=== PATIENT | female | born 1970 | race Caucasian/White ===

== ENCOUNTER 2017-08-31 13:22 | Emergency (ER) | payer OTHER, SELFPAY | END 2017-08-31 14:07 | disposition home or self-care (01) | PROVIDERS: Emergency Provider Nurse Practitioner Family; Visit Provider Nurse Practitioner Family | DX: J01.00 Acute maxillary sinusitis, unspecified (principal); J40 Bronchitis, not specified as acute or chronic; F17.210 Nicotine dependence, cigarettes, uncomplicated | CPT/HCPCS: 99201 ==

== ENCOUNTER → 2018-06-01 13:24 | Outpatient (CLI) | payer OTHER, SELFPAY ==
--- NOTE | 2018-06-01 13:29 | US_ITS ---
US transvaginal HISTORY: Irregular cycles, dysfunctional uterine bleeding ITS.REASON: DUB ORDERING PHYSICIAN: Citlali Anderson PATIENT AGE: 48 years Comparison: None FINDINGS: The uterus is 8.2 x 3.9 x 4.3 cm with a combined endometrial thickness of 6 mm. There are a couple of nabothian cysts 7 and 4 mm. There is some lobularity along the anterior aspect of the uterus possibly related to scar. The left ovary is 3.3 x 2.4 cm and contains a 2 x 1.6 cm cyst. The right ovary is 2.8 x 1.4 cm and has an unremarkable appearance. No cul-de-sac fluid is evident. IMPRESSION: 2 cm left ovarian cyst Minimal lobularity on the anterior aspect the uterus possibly related to scar versus a small fibroid at 6 mm.
== END ==
PROVIDERS: PCP Family Medicine; Visit Provider Family Medicine
DX: N93.8 Other specified abnormal uterine and vaginal bleeding (principal)
CPT/HCPCS: 76830

== ENCOUNTER → 2021-11-19 11:02 | Outpatient (CLI) | payer BC, SELFPAY ==
[2021-11-22 08:17] LABS: H. pylori Breath Test Negative (Negative)
== END ==
PROVIDERS: PCP Family Medicine; Visit Provider Family Medicine
DX: K21.9 Gastro-esophageal reflux disease without esophagitis (principal)
CPT/HCPCS: 83013

== ENCOUNTER → 2021-12-01 08:58 | Outpatient (CLI) | payer BC, SELFPAY ==
[2021-12-01 09:57] LABS: Urine Pregnancy, HCG Qual. Negative (Negative)
== END ==
PROVIDERS: Visit Provider Internal Medicine Gastroenterology
DX: Z01.818 Encounter for other preprocedural examination (principal); Z11.52 Encounter for screening for COVID-19; Z12.11 Encounter for screening for malignant neoplasm of colon
CPT/HCPCS: 81025; C9803; U0003; U0005

== ENCOUNTER 2021-12-03 09:10 | Day surgery (SDC) | payer BC, SELFPAY ==
[2021-11-30 16:01] VITALS: BMI 40.5
[2021-12-03 09:21] VITALS: BP 161/92; PULSE 82; RESP 16; TEMP 36.5; O2SAT 98
--- NOTE | 2021-12-03 09:44 | P.PN_ITS ---
[facility] Anesthesia Checklist - Patient Identification Patient Identification: Arm Band - Structural Data Admitted From: Home Planned Operative Procedure/s: Colonoscopy Consent for Planned Operative Procedure(s) Verified: Yes - NPO Status Verified Time NPO: 07:30 (Prep) - Airway Assessment C-Spine Mobility Assessed: Yes TMJ Mobility Assessed: Yes Dentition: Good Dentition - Neurological Assessment Level of Consciousness: Awake Hx Seizures: No Numbness or tingling in extremities: No - Anesthesia Plan Anesthesia Risk discussed: Yes Anesthesia Plan: Verified ASA Class: II Anesthesia Type: MAC [facility] History I have reviewed the patient's past medical history: Yes Medical History: Reports:: Gastroesophageal Reflux Disease(GERD), Hypertension Denies:: Cancer, Diabetes Mellitus Type 1, Diabetes Mellitus Type 2, Internal Pacemaker, MRSA, Seizures *Have you ever received a pneumonia vaccine?: No *Have you received a flu vaccine this season?: No Anesthesia experience/problems:: None Other Surgeries: Yes: Tubal Ligation. No: Pacemaker Amputation: No Fractures: Yes - *Social History Last grade of school completed: High school graduate Smoking Status: Current every day smoker Tobacco Type: cigarettes # Packs/Day (cigarettes): 30 Alcohol Intake: never Substance Use Type: denies use *Occupational Status:: employed, disabled Housing: house Household Members: spouse *Travel in the last 8 weeks: None Family Hx:: Coronary Artery Disease, Stroke
[2021-12-03 09:54] VITALS: O2SAT 98
--- NOTE | 2021-12-03 10:05 | HMH.SCOPE ---
- Procedure: Date: 12/03/21 Patient Date of :: 1970 Procedure Performed:: Screening colonoscopy Indications:: Family history of polyps Performing Provider:: Lyssa Gore MD Referring Provider:: Dr. Gian Salinas Sedation:: Propofol Procedure:: After placing the patient in the left lateral decubitus position, the colonoscopy was gently inserted into the rectum and under direct visualization advanced to the cecum which was identified by transillumination in the right lower quadrant, identification of the ileocecal valve, appendiceal orifice, and cecal strap. Color, texture, mucosa, and anatomy of the colon were carefully examined with the scope. Findings:: Anal canal: normal Rectum: normal Sigmoid colon: normal without polyps or inflammatory changes Descending colon: normal without polyps or inflammatory changes Splenic flexure: normal Transverse colon: normal without polyps or inflammatory changes Hepatic flexure: normal Ascending colon: normal without polyps or inflammatory changes Cecum: normal Terminal ileum: not visualized Impression: Normal colonoscopy Recommendations:: Follow colonoscopy in about 5 years or so in view of family history Complications:: None Estimated blood obtained (mL): 0
[2021-12-03 10:07] VITALS: BP 145/90; PULSE 78; RESP 16; TEMP 36.4; O2SAT 96
[2021-12-03 10:17] VITALS: BP 138/82; PULSE 73; RESP 18; TEMP 36.4; O2SAT 98
--- NOTE | 2021-12-03 10:23 | PC.NURSE ---
removed oral airway
[2021-12-03 10:27] VITALS: BP 125/84; PULSE 74; RESP 18; TEMP 36.4; O2SAT 98
== END 2021-12-03 10:27 | disposition home or self-care (01) ==
LOC: OUTP 09:11
PROVIDERS: PCP Family Medicine; Visit Provider Internal Medicine Gastroenterology
PROC: 0DJD8ZZ Inspection of Lower Intestinal Tract, Via Natural or Artificial Opening Endoscopic (ICD-10-PCS; CPT 45378; principal; 2021-12-03 10:00)
DX: Z12.11 Encounter for screening for malignant neoplasm of colon (principal); Z83.71 Family history of colonic polyps; K21.9 Gastro-esophageal reflux disease without esophagitis; I10 Essential (primary) hypertension; Z72.0 Tobacco use; Z82.3 Family history of stroke; Z82.49 Family history of ischemic heart disease and other diseases of the circulatory system; E78.5 Hyperlipidemia, unspecified; Z79.899 Other long term (current) drug therapy
CPT/HCPCS: 45378

== ENCOUNTER → 2021-12-10 10:24 | Outpatient (CLI) | payer BC, SELFPAY ==
--- NOTE | 2021-12-10 10:26 | MM_ITS ---
PROCEDURE INFORMATION: Exam: Bilateral Screening 3D Mammography Exam date and time: 12/10/2021 10:34 AM Age: 51 years old Clinical indication: Screening mammogram TECHNIQUE: Imaging protocol: Bilateral Screening tomosynthesis and 2D mammography including computer-aided detection (CAD) when performed. COMPARISON: No relevant prior studies available. FINDINGS: MAMMOGRAPHY: Breast composition: There are scattered areas of fibroglandular density. Mass: Mass within the upper outer right middle 1/3 measuring 8 mm should be further assessed with spot views in CC/MLO projection. Ultrasound should also be performed. Architectural distortion: No new or suspicious architectural distortion. Calcifications: No new or suspicious calcifications are present Asymmetric density: No new or suspicious asymmetric density is present Skin thickening: None. Axillary adenopathy: None. IMPRESSION: Every attempt should be made to retrieve prior images. If prior images can be made available, an addendum will be provided. If there are is no significant interval change, annual mammographic screening will be recommended. If for whatever reason prior films cannot be retrieved within 2 weeks, the patient will be recalled for the following: Mass within the upper outer right middle 1/3 measuring 8 mm should be further assessed with spot views in CC/MLO projection. Ultrasound should also be performed. ASSESSMENT: BI-RADS category 0: Incomplete-need additional imaging evaluation and/or prior mammograms for comparison.
--- NOTE | 2021-12-10 11:00 | CT_ITS ---
FINAL REPORT TECHNIQUE: Axial images were obtained from the lung apex to the mid abdomen by computed tomography. Low-dose protocol was utilized. CLINICAL HISTORY: H/O NICOTINE DEPENDENCE 1PPD X 30 YEARS FINDINGS: CHEST CT LOW DOSE CTDI vol (mGy): 2.90 DLP (mGy-cm): 87.51 There is a small right paratracheal lymph node measuring 1.2 cm. No other mediastinal adenopathy is identified. The heart is normal in size. There is no pericardial or pleural effusion. Lung window images demonstrate no suspicious infiltrate or nodule. There is a calcified granuloma at the right base. There is scarring along the minor fissure. Limited images of the upper abdomen are unremarkable. IMPRESSION: Lung RADS category 1. Recommend 12 month follow-up low-dose chest CT. Reviewed, Interpreted and Dictated by Cliff Pro MD Transcribed by Sonya Aguilar Authenticated by Cliff Pro MD on 12/10/2021 12:57:19 PM [facility]
== END ==
PROVIDERS: PCP Family Medicine; Visit Provider Family Medicine
DX: Z12.31 Encounter for screening mammogram for malignant neoplasm of breast (principal); Z87.891 Personal history of nicotine dependence; Z12.2 Encounter for screening for malignant neoplasm of respiratory organs
CPT/HCPCS: 71271; 77063; 77067

== ENCOUNTER → 2022-05-03 11:43 | Outpatient (CLI) | payer BC, SELFPAY ==
--- NOTE | 2022-05-03 11:51 | XR_ITS ---
FINAL REPORT CLINICAL HISTORY: COVID OUT PATIENT, chest congestion COMPARISON: 11/05/2016 FINDINGS: A single portable view of the chest was obtained. The heart size and pulmonary vascularity are within normal limits. The mediastinum is within normal limits. No acute pulmonary abnormality is identified. The bony thorax is intact. IMPRESSION: No active cardiopulmonary disease. Reviewed, Interpreted and Dictated by Ajit Pineda III, MD Transcribed by Ingrid Patino Authenticated and [facility]
[2022-05-03 13:00] LABS: Basophils # 0.2 K/mm3 (0-0.2); Basophils % 2.4 % (0.1-2.0); Eosinophils # 0.1 K/mm3 (0.0-0.4); Eosinophils % 1.2 % (0.1-12.0); Hemoglobin 14.2 g/dL (12.2-16.2); Lymphocytes # 2.5 K/mm3 (0.7-4.5); Lymphocytes % 38.8 % (10-50); Mean Corpuscular HGB Conc 31.6 g/dL (31.8-35.4); Mean Corpuscular Hemoglobin 29.1 pg (27.0-31.2); Mean Corpuscular Volume 92.1 fl (81-99); Mean Platelet Volume 8.7 fl (7.4-10.4); Monocytes # 0.4 K/mm3 (0.1-1.0); Monocytes % 5.6 % (1.7-9.3); Neutrophils # 3.3 K/mm3 (1.8-7.8); Neutrophils % 51.9 % (37.0-80.0); Platelet Count 317 K/mm3 (142-424); Red Blood Count 4.88 M/mm3 (4.20-5.40); Red Cell Distribution Width 13.4 % (11.5-17.5); White Blood Count 6.4 K/mm3 (4.8-10.8)
== END ==
PROVIDERS: PCP Family Medicine; Visit Provider Family Medicine
DX: Z20.822 Contact with and (suspected) exposure to COVID-19 (principal)
CPT/HCPCS: 36415; 71045; 85025; C9803; U0003; U0005

== ENCOUNTER → 2022-11-23 07:04 | Outpatient (CLI) | payer BC, SELFPAY ==
[2022-11-23 07:10] LABS: Microscopic, Urine URINE MICROSCOPIC (MICROSCOPIC)
[2022-11-23 07:57] LABS: Basophils # 0.2 K/mm3 (0-0.2); Basophils % 2.4 % (0.1-2.0); Eosinophils # 0.1 K/mm3 (0.0-0.4); Eosinophils % 1.9 % (0.1-12.0); Hematocrit 43.2 % (37.0-47.0); Hemoglobin 14.5 g/dL (12.2-16.2); Lymphocytes # 2.4 K/mm3 (0.7-4.5); Lymphocytes % 34.6 % (10-50); Mean Corpuscular HGB Conc 33.5 g/dL (31.8-35.4); Mean Corpuscular Hemoglobin 29.3 pg (27.0-31.2); Mean Corpuscular Volume 87.5 fl (81-99); Mean Platelet Volume 8.2 fl (7.4-10.4); Monocytes # 0.4 K/mm3 (0.1-1.0); Monocytes % 5.2 % (1.7-9.3); Neutrophils # 3.8 K/mm3 (1.8-7.8); Platelet Count 293 K/mm3 (142-424); Red Blood Count 4.94 M/mm3 (4.20-5.40); Red Cell Distribution Width 13.1 % (11.5-17.5); White Blood Count 6.9 K/mm3 (4.8-10.8)
[2022-11-23 07:59] LABS: Appearance,Urine CLEAR (Clear); Bilirubin,Urine Negative (Negative); Blood, Urine 1+ (Negative); Color,Urine YELLOW (Yellow); Glucose,Urine (UA) Negative (Negative); Ketones,Urine Negative (Negative); Leukocyte Esterase,Urine Negative (Negative); Nitrate,Urine Negative (Negative); PH,Urine 5.5 (5.0-8.5); Protein,Urine Negative (Negative); Urobilinogen,Urine 0.2 EU/dl (0.2)
[2022-11-23 08:09] LABS: Bacteria,Urine Trace /lpf; RBC,Urine Occasional #/hpf (0-3); Squamous Epithelial Cell,Urine Occasional #/hpf (0-5)
[2022-11-23 08:17] LABS: Chloride 104 mmol/L (98-107)
[2022-11-23 08:18] LABS: Potassium 4.7 mmoL/L (3.5-5.1); Sodium 140 mmol/L (136-145)
[2022-11-23 08:20] LABS: Alanine Aminotransferase 43 U/L (12-78); Albumin Level 4.3 g/dl (3.5-5.0); Albumin/Globulin Ratio 1.7 (1.1-1.8); Alkaline Phosphatase 72 U/L (38-126); Anion Gap 9.7 mEq/L (5-15); Aspartate Amino Transferase 32 U/L (14-36); Bilirubin,Total 0.5 mg/dl (0.2-1.3); Blood Urea Nitrogen 11 mg/dl (7-17); Carbon Dioxide 31 mmol/L (22.0-30.0); Cholesterol 207 mg/dl (140-200); Estimated Glomerular Filt Rate 66 ml/min (>60); GFR (African American) 80 ML/MIN (>60); Globulin 2.6 g/dL (1.3-3.2); Total Protein,Serum 6.9 g/dl (6.3-8.2); Triglycerides 168 mg/dl (30-150); VLDL Cholesterol 34 mg/dL (0-40)
[2022-11-23 08:21] LABS: Calcium 8.7 mg/dl (8.4-10.2); Chol/HDL Ratio 3.5 (1-3.5); Glucose 100 mg/dl (74-100); HDL Cholesterol 60 mg/dl (40-60)
[2022-11-23 08:31] LABS: Direct LDL Cholesterol 113.06 mg/dL (100-129)
[2022-11-23 08:51] LABS: Thyroid Stimulating Hormone 2.01 uIU/mL (0.465-4.68)
== END ==
PROVIDERS: PCP Family Medicine; Visit Provider Family Medicine
DX: I10 Essential (primary) hypertension (principal); E78.5 Hyperlipidemia, unspecified
CPT/HCPCS: 36415; 80053; 80061; 81001; 84443; 85025

== ENCOUNTER → 2022-12-27 07:14 | Outpatient (CLI) | payer BC, SELFPAY ==
--- NOTE | 2022-12-27 07:14 | CT_ITS ---
FINAL REPORT CLINICAL HISTORY: lung cancer screening current smoker, 1ppd x 30 years family hx of lung cancer COMPARISON: 12/10/2021 FINDINGS: Low-Dose Chest CT Axial images were obtained from the lung apex to the mid abdomen by computed tomography. Low-dose protocol was utilized. CTDI vol (mGy): 2.90 DLP (mGy-cm): 96.38 There is no axillary adenopathy. There is no hilar or mediastinal adenopathy. There is a stable borderline size right paratracheal lymph node. The heart is proper size. There is no pericardial or pleural effusion. Lung window images demonstrate mild changes of emphysema with mild pulmonary scarring. There is a calcified granuloma in the right lung base. There is a 3 mm lingular nodule which is stable. There is also a 4 mm right middle lobe nodule which is stable. No new mass or nodule is identified. Limited images of the upper abdomen are unremarkable. IMPRESSION: Stable nodules as above. Lung RADS category 2. Recommend 12 month follow-up low-dose chest CT. Reviewed, Interpreted and Dictated by Ajit Pineda III, MD Transcribed by Ingrid Patino Authenticated and . [facility]
== END ==
PROVIDERS: PCP Family Medicine; Visit Provider Family Medicine
DX: Z87.891 Personal history of nicotine dependence (principal); Z12.2 Encounter for screening for malignant neoplasm of respiratory organs
CPT/HCPCS: 71271

== ENCOUNTER → 2023-01-01 09:58 | Outpatient (CLI) | payer BC, SELFPAY ==
[2023-01-01 13:30] LABS: Alanine Aminotransferase 49 U/L (12-78); Albumin Level 4.5 g/dl (3.5-5.0); Albumin/Globulin Ratio 1.7 (1.1-1.8); Alkaline Phosphatase 81 U/L (38-126); Anion Gap 7.8 mEq/L (5-15); Aspartate Amino Transferase 35 U/L (14-36); Bilirubin,Total 0.5 mg/dl (0.2-1.3); Blood Urea Nitrogen 17 mg/dl (7-17); Carbon Dioxide 28 mmol/L (22.0-30.0); Chloride 102 mmol/L (98-107); Chol/HDL Ratio 3.4 (1-3.5); Cholesterol 200 mg/dl (140-200); Estimated Glomerular Filt Rate 66 ml/min (>60); GFR (African American) 80 ML/MIN (>60); Globulin 2.7 g/dL (1.3-3.2); Glucose 92 mg/dl (74-100); HDL Cholesterol 58 mg/dl (40-60); Potassium 4.8 mmoL/L (3.5-5.1); Sodium 133 mmol/L (136-145); Total Protein,Serum 7.2 g/dl (6.3-8.2); Triglycerides 137 mg/dl (30-150); VLDL Cholesterol 27 mg/dL (0-40)
== END ==
PROVIDERS: PCP Family Medicine; Visit Provider Family Medicine
DX: I10 Essential (primary) hypertension (principal); E78.5 Hyperlipidemia, unspecified
CPT/HCPCS: 36415; 80053; 80061

== ENCOUNTER → 2023-02-10 09:31 | Outpatient (CLI) | payer BC, SELFPAY ==
--- NOTE | 2023-02-10 09:34 | XR_ITS ---
FINAL REPORT CLINICAL HISTORY: back pain FINDINGS: LUMBAR SPINE Three views demonstrate no acute fracture. There are mild and moderate degenerative changes. There is vacuum phenomenon at L5-S1. Vascular calcification is identified. There is no malalignment. IMPRESSION: Degenerative changes as above. Reviewed, Interpreted and Dictated by Ajit Pineda III, MD Transcribed by Sonya Aguilar Authenticated and . [facility]
== END ==
LOC: RAD 09:31
PROVIDERS: PCP Family Medicine; Visit Provider Family Medicine
DX: M54.9 Dorsalgia, unspecified (principal); M54.50 Low back pain, unspecified
CPT/HCPCS: 72100

== ENCOUNTER → 2023-03-14 13:12 | Outpatient (CLI) | payer BC, SELFPAY | PROVIDERS: PCP Nurse Practitioner Family; Visit Provider Nurse Practitioner Family | DX: M54.50 Low back pain, unspecified (principal) ==

== ENCOUNTER → 2023-05-13 13:11 | Outpatient (CLI) | payer BC, SELFPAY ==
--- NOTE | 2023-05-13 13:15 | XR_ITS ---
FINAL REPORT CLINICAL HISTORY: Right CTS COMPARISON: None FINDINGS: RIGHT WRIST Three views demonstrate no acute fracture or dislocation. The visualized joint spaces are normally aligned. The soft tissues are unremarkable. IMPRESSION: No acute bony abnormality. Reviewed, Interpreted and Dictated by Cliff Pro MD Transcribed by Dee Ruiz Authenticated and . [facility]
--- NOTE | 2023-05-13 13:15 | XR_ITS ---
FINAL REPORT CLINICAL HISTORY: left CTS COMPARISON: None FINDINGS: LEFT WRIST Three views demonstrate no acute fracture or dislocation. The visualized joint spaces are normally aligned. The soft tissues are unremarkable. IMPRESSION: No acute bony abnormality. Reviewed, Interpreted and Dictated by Cliff Pro MD Transcribed by Dee Ruiz Authenticated and [facility]
== END ==
LOC: RAD 13:12
PROVIDERS: PCP Nurse Practitioner Family; Visit Provider Orthopaedic Surgery
DX: M25.531 Pain in right wrist (principal); M25.532 Pain in left wrist
CPT/HCPCS: 73110

== ENCOUNTER → 2023-06-10 10:52 | Outpatient (CLI) | payer BC, SELFPAY ==
[2023-06-10 10:39] LABS: Alanine Aminotransferase 51 U/L (12-78); Albumin Level 4.8 g/dl (3.5-5.0); Albumin/Globulin Ratio 1.6 (1.1-1.8); Alkaline Phosphatase 79 U/L (38-126); Anion Gap 13.8 mEq/L (5-15); Aspartate Amino Transferase 38 U/L (14-36); Bilirubin,Total 0.6 mg/dl (0.2-1.3); Blood Urea Nitrogen 12 mg/dl (7-17); Calcium 9.3 mg/dl (8.4-10.2); Carbon Dioxide 29 mmol/L (22.0-30.0); Chloride 101 mmol/L (98-107); Chol/HDL Ratio 3.7 (1-3.5); Cholesterol 177 mg/dl (140-200); Estimated Glomerular Filt Rate 58 ml/min (>60); GFR (African American) 70 ML/MIN (>60); Glucose 113 mg/dl (74-100); HDL Cholesterol 48 mg/dl (40-60); Potassium 4.8 mmoL/L (3.5-5.1); Sodium 139 mmol/L (136-145); Total Protein,Serum 7.8 g/dl (6.3-8.2); Triglycerides 147 mg/dl (30-150); VLDL Cholesterol 29 mg/dL (0-40)
[2023-06-10 10:50] LABS: Direct LDL Cholesterol 98.35 mg/dL (100-129)
[2023-06-10 10:56] LABS: 25-OH Vitamin D, Total 34.2 ng/mL (30-100)
[2023-06-10 11:28] LABS: Vitamin B12 763 pg/mL (239-931)
== END ==
PROVIDERS: PCP Nurse Practitioner Family; Visit Provider Nurse Practitioner Family
DX: I10 Essential (primary) hypertension (principal); R53.83 Other fatigue; E78.5 Hyperlipidemia, unspecified; E66.9 Obesity, unspecified; Z68.41 Body mass index [BMI] 40.0-44.9, adult
CPT/HCPCS: 80053; 80061; 82306; 82607

== ENCOUNTER 2023-08-20 12:34 | Emergency (ER) | payer BC, SELFPAY ==
[2023-08-20 14:05] VITALS: BP 151/91; PULSE 74; RESP 18; TEMP 36.6; O2SAT 100; BMI 40.8
--- NOTE | 2023-08-20 14:16 | EXP.UTC ---
Discharge Plan Disposition Patient Disposition: Home, Self-Care Condition: Good Prescriptions Prescriptions: New amoxicillin [amoxicillin] 500 mg tablet 500 mg PO BID 10 Days Qty: 20 0RF fluticasone propionate [fluticasone propionate] 50 mcg/actuation spray,suspension 1 spray intranasal DAILY Qty: 9.9 0RF No Action pantoprazole 40 mg tablet,delayed release (DR/EC) 40 mg PO BID ondansetron HCl 4 mg tablet 4 mg PO Q8H PRN (Reason: nausea and vomiting) Qty: 30 0RF lisinopril 10 mg tablet 10 mg PO DAILY Qty: 90 3RF fexofenadine 180 mg tablet 180 mg PO DAILY Qty: 90 1RF bupropion HCl [Wellbutrin XL] 300 mg tablet extended release 24 hr 300 mg PO DAILY Qty: 30 5RF diclofenac sodium 75 mg tablet,delayed release (DR/EC) 75 mg PO BID PRN (Reason: pain) 30 Days Qty: 60 0RF hydrochlorothiazide 25 mg tablet See Rx Instructions .ROUTE .COMPLEX Qty: 90 1RF Dose Instruction: Take 1 tablet by mouth once daily Rx Instructions: Take 1 tablet by mouth once daily rosuvastatin [Crestor] 10 mg tablet 10 mg PO DAILY Qty: 90 1RF Referrals Follow up/Referrals: Nicole Mueller APRN [Primary Care Provider] - See instructions Activity Restrictions/Add. Instructions Additional Instructions/Restrictions: Start antibiotic as soon as possible and be sure to take as ordered for full length of time even though he should start feeling better in 24-48 hours. Tylenol or Motrin as needed for pain or fever Encourage fluids, water, Gatorade, Powerade, Pedialyte if infant/toddler/child Warm compresses often helps when placed over ear Return immediately for new or worsening symptoms no noticeable improvement in 48-72 hours and in 10-14 days to ensure the ears are return to baseline. Follow-up with primary care Clinical Impressions Clinical Impression: Otitis media Qualifiers: Otitis media type: suppurative Chronicity: acute Laterality: left Recurrence: non-recurrent Spontaneous tympanic membrane rupture: without spontaneous rupture Qualified Code(s): H66.002 - Acute suppurative otitis media without spontaneous rupture of ear drum, left ear Acute maxillary sinusitis Qualifiers: Recurrence: non-recurrent Qualified Code(s): J01.00 - Acute maxillary sinusitis, unspecified Instructions Patient Instructions: DI for Sinusitis Discharge ED Provider: Niki ([facility])[place] [facility] [place] General Stated complaint: ear pain, sinus pressure Mode of Arrival: Ambulatory Source of Information: Patient Limitations: No Limitations Time Seen by Provider: 08/20/23 14:16 Description of Symptoms (Recalled from Triage Doc. by RN): left ear ache, and congestion HEENT Symptoms (Recalled from RN notes): Yes Resp Symptoms (Recalled from RN notes): No Skin Symptoms (Recalled from RN notes): No MS Symptoms (Recalled from RN notes): No Functional Status (Recalled from RN notes): n/a History of Present Illness Provider Complaint: 53 yr old female presents for green nasal drainage, sinus pressure, left ear pain for 4 days Related Data Home Medications Medication Instructions Recorded Confirmed pantoprazole 40 mg tablet,delayed 40 mg PO BID 06/09/23 06/09/23 release Previous Rx's Medication Instructions Recorded lisinopril 10 mg tablet 10 mg PO DAILY High blood pressure 03/14/23 #90 tabs fexofenadine 180 mg tablet 180 mg PO DAILY #90 tabs 03/24/23 bupropion HCl 300 mg 24 hr tablet, 300 mg PO DAILY #30 tabs 04/28/23 extended release (Wellbutrin XL) ondansetron HCl 4 mg tablet 4 mg PO Q8H PRN nausea and 06/09/23 vomiting #30 tabs diclofenac sodium 75 mg 75 mg PO BID PRN pain 30 days #60 07/25/23 tablet,delayed release tabs hydrochlorothiazide 25 mg tablet See Rx Instructions .Route 07/27/23 .COMPLEX #90 tabs rosuvastatin 10 mg tablet (Crestor) 10 mg PO DAILY #90 tabs 08/16/23 amoxicillin 500 mg tablet 500 mg PO BID 10 days #20 tabs 08/20/23 fluticasone propionate 50 1 spray intranasal DAILY #9.
[2023-08-20 14:28] VITALS: BP 151/91; PULSE 74; RESP 18; TEMP 36.6; O2SAT 100
== END 2023-08-20 14:28 | disposition home or self-care (01) ==
PROVIDERS: Emergency Provider Nurse Practitioner Family; PCP Nurse Practitioner Family
DX: H66.002 Acute suppurative otitis media without spontaneous rupture of ear drum, left ear (principal); J01.00 Acute maxillary sinusitis, unspecified; R09.81 Nasal congestion; F17.210 Nicotine dependence, cigarettes, uncomplicated
CPT/HCPCS: 99204; 99212; G0463

== ENCOUNTER 2023-10-06 13:47 | Outpatient (CLI) | payer BC, SELFPAY ==
[2023-10-06 14:39] LABS: Chloride 98 mmol/L (98-107)
[2023-10-06 14:40] LABS: Potassium 4.6 mmoL/L (3.5-5.1); Sodium 136 mmol/L (136-145)
[2023-10-06 14:43] LABS: Alanine Aminotransferase 46 U/L (12-78); Albumin Level 4.6 g/dl (3.5-5.0); Albumin/Globulin Ratio 1.9 (1.1-1.8); Alkaline Phosphatase 72 U/L (38-126); Anion Gap 14.6 mEq/L (5-15); Aspartate Amino Transferase 32 U/L (14-36); Bilirubin,Total 0.4 mg/dl (0.2-1.3); Blood Urea Nitrogen 14 mg/dl (7-17); Calcium 8.8 mg/dl (8.4-10.2); Carbon Dioxide 28 mmol/L (22.0-30.0); Estimated Glomerular Filt Rate 47 ml/min (>60); GFR (African American) 57 ML/MIN (>60); Globulin 2.4 g/dL (1.3-3.2); Glucose 84 mg/dl (74-100)
[2023-10-06 14:49] LABS: Basophils % 0.5 % (0.1-2.0); Eosinophils # 0.1 K/mm3 (0.0-0.4); Eosinophils % 1.2 % (0.1-12.0); Hematocrit 42.3 % (37.0-47.0); Hemoglobin 14.3 g/dL (12.2-16.2); Lymphocytes # 3.1 K/mm3 (0.7-4.5); Lymphocytes % 39.2 % (10-50); Mean Corpuscular HGB Conc 33.9 g/dL (31.8-35.4); Mean Corpuscular Hemoglobin 30.6 pg (27.0-31.2); Mean Corpuscular Volume 90.2 fl (81-99); Mean Platelet Volume 8.9 fl (7.4-10.4); Monocytes # 0.5 K/mm3 (0.1-1.0); Monocytes % 6.5 % (1.7-9.3); Neutrophils # 4.1 K/mm3 (1.8-7.8); Neutrophils % 52.8 % (37.0-80.0); Platelet Count 312 K/mm3 (142-424); Red Blood Count 4.69 M/mm3 (4.20-5.40); Red Cell Distribution Width 13.1 % (11.5-17.5); White Blood Count 7.8 K/mm3 (4.8-10.8)
== END 2023-10-06 23:59 ==
LOC: LAB.DROPOF 13:48
PROVIDERS: PCP Nurse Practitioner Family; Visit Provider Nurse Practitioner Family
DX: I10 Essential (primary) hypertension (principal); R30.0 Dysuria; R53.83 Other fatigue; B96.89 Other specified bacterial agents as the cause of diseases classified elsewhere
CPT/HCPCS: 80053; 85025; 87086

== ENCOUNTER 2023-12-07 18:31 | Outpatient (CLI) | payer BC, SELFPAY ==
[2023-12-07 18:14] LABS: Chloride 100 mmol/L (98-107)
[2023-12-07 18:15] LABS: Potassium 4.7 mmoL/L (3.5-5.1); Sodium 137 mmol/L (136-145)
[2023-12-07 18:17] LABS: Alanine Aminotransferase 45 U/L (12-78); Alkaline Phosphatase 83 U/L (38-126); Aspartate Amino Transferase 36 U/L (14-36); Bilirubin,Total 0.6 mg/dl (0.2-1.3); Blood Urea Nitrogen 15 mg/dl (7-17); Estimated Glomerular Filt Rate 58 ml/min (>60); GFR (African American) 70 ML/MIN (>60)
[2023-12-07 18:18] LABS: Albumin Level 4.7 g/dl (3.5-5.0); Albumin/Globulin Ratio 1.8 (1.1-1.8); Anion Gap 10.7 mEq/L (5-15); Calcium 9.8 mg/dl (8.4-10.2); Carbon Dioxide 31 mmol/L (22.0-30.0); Chol/HDL Ratio 4.4 (1-3.5); Cholesterol 192 mg/dl (140-200); Globulin 2.6 g/dL (1.3-3.2); Glucose 96 mg/dl (74-100); HDL Cholesterol 44 mg/dl (40-60); Total Protein,Serum 7.3 g/dl (6.3-8.2); Triglycerides 189 mg/dl (30-150); VLDL Cholesterol 38 mg/dL (0-40)
[2023-12-07 18:34] LABS: Free T4 (Free Thyroxine) 1.13 ng/dl (0.78-2.19); Hemoglobin A1C 5.3 % (4.0-6.0)
[2023-12-07 18:35] LABS: Direct LDL Cholesterol 91.33 mg/dL (100-129)
[2023-12-07 18:49] LABS: Thyroid Stimulating Hormone 2.34 uIU/mL (0.465-4.68)
== END 2023-12-07 23:59 ==
LOC: LAB.DROPOF 18:31
PROVIDERS: PCP Nurse Practitioner Family; Visit Provider Nurse Practitioner Family
DX: E78.5 Hyperlipidemia, unspecified (principal); I10 Essential (primary) hypertension; N17.9 Acute kidney failure, unspecified; R53.83 Other fatigue; Z13.1 Encounter for screening for diabetes mellitus; F17.210 Nicotine dependence, cigarettes, uncomplicated
CPT/HCPCS: 80053; 80061; 83036; 84439; 84443

== ENCOUNTER 2023-12-29 13:34 | Outpatient (CLI) | payer BC, SELFPAY ==
--- NOTE | 2023-12-29 13:34 | CT_ITS ---
FINAL REPORT TECHNIQUE: Thin section axial images were obtained from the lung apices to the upper abdomen by computed tomography. Reformatted images were obtained and reviewed. This study was performed with techniques to keep radiation doses al low as reasonably achievable (ALARA). Individualized dose reduction techniques using automated exposure control or adjustment of mA and/or kV according to the patient's size were employed. CLINICAL HISTORY: lung cancer screening CURRENT SMOKER 1 PPD x30+YEARS COMPARISON: 12/27/2022 FINDINGS: CHEST CT LOW DOSE 55-year-old female, current smoker, 30+ pack year history. CTDI vol (mGy): 2.9 DLP (mGy-cm): 105.51 There is no axillary adenopathy. There is no mediastinal or hilar mass or adenopathy. The heart is normal in size. There is no pericardial or pleural effusion. There is mild emphysema and mild pulmonary scarring. Lung window images demonstrate a 3 mm nodule in the lingula, best seen on image #45, stable. There is a 4 mm right middle lobe nodule, best seen on image #43, also stable. A calcified granuloma is present in the right lower lobe. Limited images of the upper abdomen are unremarkable. IMPRESSION: Lung-RADS category 1. Recommend 12 month follow up low dose chest CT. Reviewed, Interpreted and Dictated by Ajit Pineda III, MD Transcribed by Halie Humphrey Authenticated and [facility]
== END 2023-12-29 23:59 ==
LOC: RAD 13:34
PROVIDERS: PCP Nurse Practitioner Family; Visit Provider Nurse Practitioner Family
DX: Z87.891 Personal history of nicotine dependence (principal); Z12.2 Encounter for screening for malignant neoplasm of respiratory organs
CPT/HCPCS: 71271

== ENCOUNTER 2024-07-10 10:31 | Outpatient (CLI) | payer BC, SELFPAY ==
--- NOTE | 2024-07-10 10:35 | XR_ITS ---
PROCEDURE INFORMATION: Exam: XR Left Hand Exam date and time: 07/10/2024 10:39 AM Age: 54 years old Clinical indication: Pain; Hand; Left; Additional info: Left hand pain TECHNIQUE: Imaging protocol: Radiologic exam of the left hand. Views: 3 or more views. COMPARISON: CR XR WRIST LT MIN 3V 07/10/2024 10:39 AM FINDINGS: Bones/joints: Mild degenerative change of the 2nd D IP joint. No evidence of fracture or dislocation Soft tissues: Normal. IMPRESSION: Mild degenerative change of the 2nd D IP joint. No evidence of acute fracture or dislocation
--- NOTE | 2024-07-10 10:35 | XR_ITS ---
PROCEDURE INFORMATION: Exam: XR Left Wrist Exam date and time: 07/10/2024 10:39 AM Age: 54 years old Clinical indication: Pain; Wrist; Left; Additional info: Left wrist pain TECHNIQUE: Imaging protocol: Radiologic exam of the left wrist. Views: 3 or more views. COMPARISON: CR XR HAND LT MIN 3V 07/10/2024 10:39 AM FINDINGS: Bones/joints: Normal. Soft tissues: Normal. IMPRESSION: No acute findings.
== END 2024-07-10 23:59 | disposition home or self-care (01) ==
LOC: RAD 10:32
PROVIDERS: PCP Nurse Practitioner Family; Visit Provider Orthopaedic Surgery
DX: M79.642 Pain in left hand (principal); M25.532 Pain in left wrist
CPT/HCPCS: 73110; 73130

== ENCOUNTER 2024-07-20 09:13 | Outpatient (CLI) | payer BC, SELFPAY ==
--- NOTE | 2024-07-20 09:38 | ECG_ITS ---
APPROVED REPORT Exam: Resting ECG HR:78 bpm ECG Measurements Heart Rate 78 AXES NJ 162 P 74 QRSd 88 QRS 67 QT 380 T 67 QTc 413 Conclusion SINUS RHYTHM POSSIBLE RIGHT VENTRICULAR CONDUCTION DELAY [RSR (QR) IN V1/V2] BORDERLINE ECG UNCONFIRMED REPORT Electronically signed by : Salvador Giles MD 07/23/2024 08:21:37
[2024-07-20 09:47] VITALS: BMI 42.4
[2024-07-20 10:03] LABS: Chloride 104 mmol/L (98-107); Potassium 4.1 mmoL/L (3.5-5.1); Sodium 137 mmol/L (136-145)
[2024-07-20 10:05] LABS: Basophils # 0.1 K/mm3 (0-0.2); Basophils % 1.2 % (0.1-2.0); Eosinophils # 0.1 K/mm3 (0.0-0.4); Eosinophils % 0.8 % (0.1-12.0); Hematocrit 42.7 % (37.0-47.0); Hemoglobin 14.8 g/dL (12.2-16.2); Lymphocytes # 2.2 K/mm3 (0.7-4.5); Lymphocytes % 28.4 % (10-50); Mean Corpuscular HGB Conc 34.7 g/dL (31.8-35.4); Mean Corpuscular Hemoglobin 30.5 pg (27.0-31.2); Mean Corpuscular Volume 88.1 fl (81-99); Monocytes # 0.5 K/mm3 (0.1-1.0); Monocytes % 6.9 % (1.7-9.3); Neutrophils # 4.7 K/mm3 (1.8-7.8); Neutrophils % 62.8 % (37.0-80.0); Platelet Count 263 K/mm3 (142-424); Red Blood Count 4.85 M/mm3 (4.20-5.40); Red Cell Distribution Width 13.3 % (11.5-17.5); White Blood Count 7.6 K/mm3 (4.8-10.8)
[2024-07-20 10:06] LABS: Anion Gap 10.1 mEq/L (5-15); Blood Urea Nitrogen 13 mg/dl (7-17); Carbon Dioxide 27 mmol/L (22.0-30.0); Creatinine Clearance Estimated 56 mL/min (50-200); Estimated Glomerular Filt Rate 58 ml/min (>60); GFR (African American) 70 ML/MIN (>60)
[2024-07-20 10:07] LABS: Calcium 8.9 mg/dl (8.4-10.2); Glucose 118 mg/dl (74-100)
== END 2024-07-20 23:59 | disposition home or self-care (01) ==
LOC: PREOP 09:13
PROVIDERS: Nurse Anesthetist, Certified Registered; PCP Nurse Practitioner Family; Visit Provider Orthopaedic Surgery
DX: R94.31 Abnormal electrocardiogram [ECG] [EKG] (principal)
CPT/HCPCS: 80048; 85025; 93005

== ENCOUNTER 2024-08-01 08:48 | Day surgery (SDC) | payer BC, SELFPAY ==
[2024-07-20 09:46] VITALS: BMI 42.4
[2024-07-30 16:36] VITALS: BMI 42.0
[2024-08-01] VITALS (11 sets, daily range): BP systolic 107–158; BP diastolic 60–100; PULSE 75–87; RESP 12–18; TEMP 36.2–36.6; O2SAT 92–97; BMI 42.4
[2024-08-01] MEDS: LACTATED RINGERS 1000ML 1,000 ML 100 ML IV (09:13)
--- NOTE | 2024-08-01 09:50 | P.PNANES_ITS ---
[facility] Disclaimer: The information contained in this section may have been updated after the patient was seen, as this information can be updated by other users. Medical History Nocturnal hypoxemia Urinary tract infection symptoms Acute maxillary sinusitis Otitis media Low back pain Rash and nonspecific skin eruption Sinusitis Fracture, foot Surgical History History of foot surgery History of nasal surgery H/O tubal ligation Family History Father Heart attack Hyperlipidemia Hypertension Stroke Mother Hyperlipidemia Hypertension Sister Hyperlipidemia Hypertension Social History Smoking Status: Current every day smoker tobacco type: cigarettes packs per day: 1 alcohol intake: never substance use type: denies use current occupational status: employed Travel in the last 8 weeks: Inside the [place] household members: spouse housing: house caffeine: Yes [facility] Anesthesia Checklist Patient Identification Patient Identification: Arm Band and Verbal (Name & ) Structural Data Admitted From: Home Planned Operative Procedure/s: CTR Consent for Planned Operative Procedure(s) Verified: Yes Verified Documents: Surgical Consent and History and Physical NPO Status Verified Time NPO: 00:00 Additional verifications Anesthesia Reactions: No Hx Blood Transfusions: No Blood Transfusion Reaction: No Airway Assessment Mallampati Score:: Class II C-Spine Mobility Assessed: Yes TMJ Mobility Assessed: Yes Dentition: Dentures-poor fitting (Removed - upper) Neurological Assessment Level of Consciousness: Awake Hx Seizures: No Numbness or tingling in extremities: No Anesthesia Plan Anesthesia Risk discussed: Yes Anesthesia Plan: Verified ASA Class: III Anesthesia Type: General
[2024-08-01] MEDS: CEFAZOLIN SODIUM 2 GM in 0.9 % SODIUM CHLORIDE 100 ML IV (11:29)
[2024-08-01] MEDS: LIDOCAINE 1% W/EPI 1:100,000 20ML VIAL 20 ML (11:29)
--- NOTE | 2024-08-01 11:35 | EXP.OP.NOTE ---
Date of procedure: 08/01/24 Pre-op Diagnosis:: Left carpal tunnel syndrome Post-op Diagnosis:: Same Procedure performed:: Left endoscopic carpal tunnel release Surgeon:: Beni Moralez DO Technology Director(s):: NEGAR Kirk CLEAT THROWER:: Barry Sam Anesthesia: LMA Estimated blood loss (mL): 0 Operative findings:: See dictation Operative note:: Patient identified preoperatively. Left wrist marked with yes and my initials. Transferred operative suite placed upon operating bed. General anesthesia administered LMA placed. Left upper extremity was then prepped and draped in normal sterile fashion. Once prepped and draped final operative timeout performed to identify proper patient procedure and extremity. Everyone involved in the case agreed. There were no counter indications to beginning. Did receive preoperative antibiotics. Marking pen was used to jairo plan incision over the volar wrist crease. Esmarch was used to exsanguinate extremity pneumatic tourniquet inflated to 250 mmHg. Skin knife is used to incise through skin over the volar wrist crease. Scissors were taken down with dissection and Ragnell retractors were placed to identify the most proximal aspect the transverse carpal ligament once identified the retractors were held and the dilators were placed from the segue endoscopic carpal tunnel release set followed by the larger dilator and the 4.0 mm sled which was placed into the carpal tunnel camera was then placed the transverse carpal ligament clearly seen superiorly within the camera window. A probe was used to identify the most distal aspect the transverse carpal ligament a rasp was used to remove the soft tissue from the undersurface. And the hook blade from the segue endoscopic carpal tunnel set was utilized to fully release the transverse carpal ligament this was directly visualized throughout the procedure with a camera. Sled removed irrigation performed skin closed with interrupted 4-0 Monocryl Steri-Strips and sterile hand dressing. Patient waken anesthesia and taken recovery stable condition Condition: stable Disposition: PACU Complications:: None apparent
--- NOTE | 2024-08-01 11:38 | EXP.ANES.I ---
[facility] Anesthesia Record Part I Anesthesia Record I Intake, IV Amount: 1,000 Hydration: Adequate Estimated blood loss (mL): 0 Urine output (mL): 0 Blood Pressure: 141/85 SaO2: 94 Pulse Rate: 84 Airway Patency: Patent Respiratory Rate: 12 Temperature: 98 F Patient is:: Awake and Stable Stable to PACU at:: 11:35
--- NOTE | 2024-08-01 12:32 | P.PNANES_ITS ---
[facility] Anesthesia Record Part I Anesthesia Record I Intake, IV Amount: 900 Hydration: Adequate Estimated blood loss (mL): 0 Urine output (mL): 0 Blood Pressure: 150/100 SaO2: 94 Pulse Rate: 77 Airway Patency: Patent Respiratory Rate: 12 Temperature: 98 F Patient is:: Awake and Stable Stable to PACU at:: 12:30
--- NOTE | 2024-08-01 13:45 | EXP.ANES.I ---
[facility] Anesthesia Record Part I Anesthesia Record I Intake, IV Amount: 1,200 Hydration: Adequate Estimated blood loss (mL): 0 Urine output (mL): 0 Blood Pressure: 107/60 SaO2: 92 Pulse Rate: 82 Airway Patency: Patent Respiratory Rate: 12 Temperature: 97.5 F Patient is:: Awake and Stable Stable to PACU at:: 13:50
--- NOTE | 2024-08-02 11:59 | EXP.ANES.II ---
[facility] Anesthesia Record Part II Anesthesia Record Part II Discharge Time: 12:05 Destination: Surgical Day Care (OP Surgery) PACU nurse assessment reviewed?: Yes Patient Condition:: Good Anesthesia Complications:: None Swallowing reflex intact?: Yes Airway Patency: Patent Cyanosis?: No Blood Pressure: 158/88 SaO2: 96 Respiratory Rate: 16 Pulse Rate: 80 Temperature: 97.3 F Mental Status: Alert & Oriented Pain level:: 0 Nausea and/or vomitting:: None Intake, IV Amount: 0 Hydration: Adequate
[2024-08-02 12:00] VITALS: BP 158/88; PULSE 80; RESP 16; TEMP 36.3; O2SAT 96
== END 2024-08-01 12:36 | disposition home or self-care (01) ==
PROVIDERS: PCP Nurse Practitioner Family; Visit Provider Orthopaedic Surgery
PROC: (CPT 64721; principal; 2024-08-01 10:30)
DX: G56.02 Carpal tunnel syndrome, left upper limb (principal)
CPT/HCPCS: 29848; 96374; J0690; J1100; J2250; J2405; J3010; J7120

== ENCOUNTER 2024-08-29 07:28 | Day surgery (SDC) | payer BC, SELFPAY ==
[2024-08-28 16:10] VITALS: BMI 44.1
[2024-08-29 07:57] VITALS: BP 116/71; PULSE 84; RESP 18; TEMP 36.2; O2SAT 95
[2024-08-29] MEDS: LACTATED RINGERS 1000ML 1,000 ML 100 ML IV (08:07)
[2024-08-29] MEDS: CEFAZOLIN SODIUM 2 GM in 0.9 % SODIUM CHLORIDE 100 ML IV (09:38)
[2024-08-29] MEDS: LIDOCAINE 1% W/EPI 1:100,000 20ML VIAL 20 ML (10:00)
--- NOTE | 2024-08-29 10:14 | EXP.OP.NOTE ---
Date of procedure: 08/29/24 Pre-op Diagnosis:: Right carpal tunnel syndrome Post-op Diagnosis:: Same Procedure performed:: Right endoscopic carpal tunnel release Surgeon:: Beni Moralez DO DATA COLLECTION TECHNICIAN:: Freddy Aldridge Anesthesia: MAC and local Estimated blood loss (mL): 0 Operative findings:: See dictation Operative note:: Patient identified preoperatively. Right wrist marked with yes and my initials. Transferred to operative suite. Given sedation. Right upper extremity prepped and draped normal sterile fashion. Once prepped and draped final operative timeout performed to identify proper patient procedure and extremity. Everyone involved in the case agreed. There were no counter indications to beginning. Did receive preoperative antibiotics. Marking pen was used to jairo plan incision over the volar wrist crease. Esmarch was used to exsanguinate the extremity and pneumatic tourniquet inflated to 250 mmHg. Skin knife is used to incise through skin careful dissection was taken down the scissors and retractors were placed. Dissection was taken down to identify the most proximal aspect the transverse carpal ligament once identified the small dilator followed by the larger dilator followed by the 4.0 mm sled were placed into the carpal tunnel. Through the 4.0 mm sled the camera was placed transverse carpal ligament clearly seen superiorly within the picture. A hook was utilized to identify the most distal aspect the transverse carpal ligament. Rasp was used to remove soft tissue from the undersurface of transverse carpal ligament. And then the hook blade from the [employer] carpal tunnel system was utilized to release the transverse carpal ligament. This was directly visualized with the camera and fully released. Sled was removed. Irrigation of the wound performed. Wound closed with buried 4-0 Monocryl stitches and Steri-Strips sterile hand dressing placed patient waken anesthesia taken recovery stable condition. Condition: stable Disposition: PACU Complications:: None apparent
[2024-08-29 10:25] VITALS: BP 108/66; PULSE 81; RESP 18; TEMP 36.3; O2SAT 92
[2024-08-29 10:35] VITALS: BP 100/57; PULSE 83; RESP 16; O2SAT 95
[2024-08-29 10:45] VITALS: BP 115/61; PULSE 98; RESP 16; O2SAT 97
[2024-08-29 10:51] VITALS: BP 118/62; PULSE 74; RESP 16; O2SAT 98
== END 2024-08-29 10:53 | disposition home or self-care (01) ==
PROVIDERS: PCP Nurse Practitioner Family; Visit Provider Orthopaedic Surgery
PROC: (CPT 64721; principal; 2024-08-29 09:00)
DX: G56.01 Carpal tunnel syndrome, right upper limb (principal)
CPT/HCPCS: 29848; 96374; J0690; J1100; J2250; J2405; J3010; J7120

== ENCOUNTER 2024-09-11 10:39 | Outpatient (CLI) | payer BC, SELFPAY ==
--- NOTE | 2024-09-11 10:50 | CA_ITS ---
FINAL REPORT CLINICAL HISTORY: smoker, decreased pulses FINDINGS: Multiple transverse and longitudinal scans were performed of the femoral popliteal deep venous system, with augmentation and compression maneuvers. Normal phasic flow was noted in the visualized deep venous system. No intraluminal increased echogenicity is noted to suggest thrombus. There is normal compression and augmentation of the venous structures. No abnormal venous collaterals are seen. IMPRESSION: No evidence of deep venous thrombosis of the bilateral lower extremities. Reviewed, Interpreted and Dictated by Gael Ryan MD Transcribed by Sonya Aguilar Authenticated and [facility]
== END 2024-09-11 23:59 | disposition home or self-care (01) ==
LOC: RT 10:40
PROVIDERS: PCP Nurse Practitioner Family; Visit Provider Nurse Practitioner Family
DX: R09.89 Other specified symptoms and signs involving the circulatory and respiratory systems (principal); R60.9 Edema, unspecified
CPT/HCPCS: 93923; 93970

== ENCOUNTER 2024-12-26 09:23 | Outpatient (CLI) | payer BC, SELFPAY ==
--- NOTE | 2024-12-26 09:30 | CT_ITS ---
FINAL REPORT CLINICAL HISTORY: lung cancer screening CURRENT SMOKER 1.5PPD X35 YEARS FINDINGS: CT CHEST LOW DOSE SCREENING DOSE: CTDIvol: 2.90 mGy, DLP: 96.38 mGy*cm COMPARISON: 12/29/2023. TECHNIQUE: Axial CT without IV contrast administration using low dose protocol. This study was performed with techniques to keep radiation doses as low as reasonably achievable, (ALARA). Individualized dose reduction techniques using automated exposure control or adjustment of mA and/or kV according to the patient's size were employed. FINDINGS: No acute lung disease is present . There is a stable 3 mm nodule in the lingula seen on image 39 of series 3. A right midlung nodule measures 3 mm on image 36 of series 3. This previously measured 4 mm. No new nodule is identified. No pleural or pericardial effusion is seen . No adenopathy or mass lesion is present . IMPRESSION: Stable exam without suspicious pulmonary nodule. LUNG RADS CATEGORY 2 RECOMMENDATION: 12 month LDCT follow up Reviewed, Interpreted and Dictated by Gael Ryan MD Transcribed by Leonie aBr Authenticated and [facility]
== END 2024-12-26 23:59 | disposition home or self-care (01) ==
LOC: RAD 09:24
PROVIDERS: PCP Nurse Practitioner Family; Visit Provider Nurse Practitioner Family
DX: Z87.891 Personal history of nicotine dependence (principal)
CPT/HCPCS: 71271

== ENCOUNTER 2025-02-28 15:26 | Outpatient (CLI) | payer BC, SELFPAY ==
[2025-02-28 13:29] LABS: Microscopic, Urine URINE MICROSCOPIC (MICROSCOPIC)
[2025-02-28 14:40] LABS: Chloride 99 mmol/L (98-107); Potassium 4.8 mmoL/L (3.5-5.1); Sodium 133 mmol/L (136-145)
[2025-02-28 14:42] LABS: Blood Urea Nitrogen 13 mg/dl (7-17); Estimated Glomerular Filt Rate 58 ml/min (>60); GFR (African American) 70 ML/MIN (>60); Iron 83 ug/dL (37-170)
[2025-02-28 14:43] LABS: Anion Gap 11.8 mEq/L (5-15); Calcium 10.7 mg/dl (8.4-10.2); Carbon Dioxide 27 mmol/L (22.0-30.0); Cholesterol 163 mg/dl (140-200); Glucose 79 mg/dl (74-100); Triglycerides 81 mg/dl (30-150); VLDL Cholesterol 16 mg/dL (0-40)
[2025-02-28 14:52] LABS: Appearance,Urine CLEAR (Clear); Bilirubin,Urine Negative (Negative); Blood, Urine 1+ (Negative); Color,Urine YELLOW (Yellow); Glucose,Urine (UA) Negative (Negative); Ketones,Urine TRACE (Negative); Leukocyte Esterase,Urine Negative (Negative); Nitrate,Urine Negative (Negative); Protein,Urine Negative (Negative); Specific Gravity, Urine 1.025 (1.005-1.030); Urobilinogen,Urine 0.2 EU/dl (0.2)
[2025-02-28 14:53] LABS: Total Iron Binding Capacity 347 ug/dL (265-497)
[2025-02-28 14:54] LABS: Direct LDL Cholesterol 84.08 mg/dL (100-129)
[2025-02-28 15:01] LABS: 25-OH Vitamin D, Total 33.9 ng/mL (30-100); Total Protein,Urine Random < 5.0 mg/dL (0.0-12.0)
[2025-02-28 15:03] LABS: Hemoglobin A1C 5.2 % (4.0-6.0)
[2025-02-28 15:19] LABS: Ferritin 86.7 ng/ml (11.1-264)
[2025-02-28 15:34] LABS: Bacteria,Urine 1+ /lpf; RBC,Urine Occasional #/hpf (0-3)
[2025-02-28 16:13] LABS: Chol/HDL Ratio 3.3 (1-3.5); HDL Cholesterol 49 mg/dl (40-60)
== END 2025-02-28 23:59 | disposition home or self-care (01) ==
LOC: LAB.DROPOF 15:27
PROVIDERS: PCP Nurse Practitioner Family; Visit Provider Nurse Practitioner Family
DX: E11.9 Type 2 diabetes mellitus without complications (principal); E66.01 Morbid (severe) obesity due to excess calories; R53.83 Other fatigue; I10 Essential (primary) hypertension; E78.5 Hyperlipidemia, unspecified; Z72.0 Tobacco use
CPT/HCPCS: 80048; 80061; 81001; 82306; 82728; 83036; 83540; 83550; 84156; 87086

== ENCOUNTER 2025-09-04 09:20 | Outpatient (CLI) | payer BC, SELFPAY ==
[2025-09-04 13:23] LABS: Microscopic, Urine URINE MICROSCOPIC (MICROSCOPIC)
[2025-09-04 15:15] LABS: Bilirubin,Urine Negative (Negative); Color,Urine YELLOW (Yellow); Glucose,Urine (UA) Negative (Negative); Ketones,Urine Negative (Negative); Leukocyte Esterase,Urine Negative (Negative); PH,Urine 6.0 (5.0-8.5); Protein,Urine Negative (Negative); Specific Gravity, Urine 1.015 (1.005-1.030); Urobilinogen,Urine 0.2 EU/dl (0.2)
[2025-09-04 15:25] LABS: Hematocrit 43.2 % (37.0-47.0); Hemoglobin 14.9 g/dL (12.2-16.2); Immature Granulocytes % 0.3 %; Mean Corpuscular HGB Conc 34.5 g/dL (31.8-35.4); Mean Corpuscular Hemoglobin 29.9 pg (27.0-31.2); Mean Corpuscular Volume 86.7 fl (81-99); Nucleated Red Blood Cells % 0 %; Platelet Count 307 K/mm3 (142-424); Red Blood Count 4.98 M/mm3 (4.20-5.40); Red Cell Distribution Width-SD 39.1 fL; White Blood Count 6.1 K/mm3 (4.8-10.8)
[2025-09-04 15:56] LABS: Alanine Aminotransferase 33 U/L (12-78); Albumin Level 5.0 g/dl (3.5-5.0); Albumin/Globulin Ratio 1.8 (1.1-1.8); Alkaline Phosphatase 63 U/L (38-126); Anion Gap 13.5 mEq/L (5-15); Aspartate Amino Transferase 27 U/L (14-36); Bilirubin,Total 0.6 mg/dl (0.2-1.3); Blood Urea Nitrogen 18 mg/dl (7-17); Calcium 9.6 mg/dl (8.4-10.2); Carbon Dioxide 25 mmol/L (22.0-30.0); Chloride 101 mmol/L (98-107); Cholesterol 188 mg/dl (140-200); Creatinine,Serum 1.10 mg/dl (0.52-1.04); Estimated Glomerular Filt Rate 52 ml/min (>60); GFR (African American) 63 ML/MIN (>60); Globulin 2.8 g/dL (1.3-3.2); Glucose 73 mg/dl (74-100); HDL Cholesterol 71 mg/dl (40-60); Iron 107 ug/dL (37-170); Potassium 4.5 mmoL/L (3.5-5.1); Sodium 135 mmol/L (136-145); Total Protein,Serum 7.8 g/dl (6.3-8.2); Triglycerides 73 mg/dl (30-150)
[2025-09-04 16:13] LABS: 25-OH Vitamin D, Total 29.4 ng/mL (30-100)
[2025-09-04 16:17] LABS: Total Iron Binding Capacity 305 ug/dL (265-497)
[2025-09-04 16:25] LABS: Free T4 (Free Thyroxine) 1.39 ng/dl (0.78-2.19)
[2025-09-04 16:51] LABS: Vitamin B12 645 pg/mL (239-931)
[2025-09-04 17:08] LABS: Hepatitis C Ab Qual. W/ RFX NEGATIVE (Negative)
[2025-09-04 17:20] LABS: Squamous Epithelial Cell,Urine Occasional #/hpf (0-5)
[2025-09-04 18:02] LABS: Thyroid Stimulating Hormone 2.10 uIU/mL (0.465-4.68)
[2025-09-04 18:06] LABS: Ferritin 112 ng/ml (11.1-264)
--- OUTSIDE RECORDS SUMMARY | 2025-09-04 20:18 | XMS_ITS | Clinical Summary ---
Author Organization [facility] Address [address] [place] [address] Care Team Providers Care Shirt Sorter Name Role Phone Fany Victoria Sukumar ARAGON Primary Care Provider Allergies No known active allergies Medications Ibuprofen (ADVIL PO) Take by mouth. Active fluticasone (FLONASE) 50 MCG/ACT nasal spray 2 sprays into each nostril Daily. Active Esomeprazole Magnesium (NEXIUM PO) Take by mouth. Active albuterol sulfate HFA 108 (90 Base) MCG/ACT inhaler INHALE 1 TO 2 PUFFS BY MOUTH EVERY 4 TO 6 HOURS 0 08/15/2019 Active azithromycin (ZITHROMAX) 250 MG tablet Take by mouth See Admin Instructions . Take 2 tablets by mouth on day 1 then take 1 tablet by mouth once daily on days 2-5 0 08/15/2019 Active lisinopril (PRINIVIL,ZESTR IL) 10 MG tablet Take 10 mg by mouth Daily. 0 06/21/2019 Active predniSONE (DELTASONE) 10 MG tabletIndicatio ns:Coughing 6 tabs po x 4 days; 4 tabs po x 4 days; 2 tabs po x 4 day; stop/taperin g dose x 12 days. 48 tablet 09/02/2019 Active Active Problems No known active problems Family History Medical History Relation Name Comments Stroke Father Relation Name Status Comments Father Social History Tobacco Use Types Packs/Day Years Used Date Smoking Tobacco: Every Day Cigarettes Tobacco Cessation:Ready to Q uit: No; Counseling Given: No Abuse Screen Answer Date Recorded Unsafe at Home or Work/School Not on file Feels Threatened by Someone? Not on file 10/ 07/2023 Does Anyone Keep You from Co ntacting Others or Doint Things Outside the Home? Not on file 06/29/2023 Physical Sign of Abuse Present Not on file 1 Housing Stability Answer Date Recorded Current Living Arrangements Not on file 06/19 Potentially Unsafe Housing Conditions Not on ga e 06/29/2023 Family and Community Support Answer Gonzales e Recorded Help with Day-to-Day Activities Not on file 06/29/2023 Lonely or Isolated Not on file 06/29/2023 Employment Answer Date Recorded Do you want help finding or keeping work or a madelaine b? Not on file 06/29/2023 Disabilities Answer Date Recorded Concentrating, Remembering, or Making Decisions Difficulty Not on file 06/29/2023 Doing Errands Independently Difficulty Not on fi le 06/29/2023 Education Answer Date Recorded Help with school or training? Not on file Preferred Language Not on file 06/29/2023 Comments No Sex and Gender Information Value Date Recorded Sex Assigned at Not on file Legal Sex Female 5:59 PM EDT Gender Identity Not on file Sexual Orientation Not on file Last Filed Vital Signs Vital Sign Reading Time Taken Comments Blood Pressure 126/84 09/02/2019 12:30 PM EST Pulse 93 09/02/2019 12:30 PM EST Temperature 37.5 C (99.5 F) 09/02/2019 12:30 PM EST Respiratory Rate 20 09/02/2019 12:30 PM EST Oxygen Saturation 97% 09/02/2019 12:30 PM EST Inhaled Oxygen Concentration - - Weight 106 kg (233 lb) 09/02/2019 12:30 PM EST Height 162.6 cm (5' 4 ) 09/02/2019 12:30 PM EST Body Mass Index 39.99 09/02/2019 12:30 PM EST Plan of Treatment Health Maintenance Due Date Last Done Comments Annual Gynecologic Pelvic and Breast Exam 1971 TDAP/TD VACCINES (1 - Tdap) 1990 MAMMOGRAM 2011 COLOGUARD 02/24/2016 COLON CANCER SCREENING 5 YEAR SIGMOIDOSCOPY 02/24/2016 COLONOSCOPY 02/24/2016 COLORECTAL CANCER SCREENING 02/24/2016 CT COLONOGRAPHY 02/24/2016 FECAL OCCULT BLOOD TEST 02/24/2016 FIT Testing (1 year) 02/24/2016 ANNUAL PHYSICAL 09/02/2019 HEPATITIS C SCREENING 09/02/2019 Pneumococcal Vaccine 50+ (1 of 1 - PCV) 2021 ZOSTER VACCINE (1 of 2) 2021 INFLUENZA VACCINE 04/19/2025 Care Teams Shirt Sorter Relationship Specialty Start Date End Date Fany Victoria APRN PCP - General Family Medicine 07/23/16
== END 2025-09-04 23:59 | disposition home or self-care (01) ==
LOC: LAB.DROPOF 20:13
PROVIDERS: PCP Nurse Practitioner Family; Visit Provider Nurse Practitioner Family
DX: K21.9 Gastro-esophageal reflux disease without esophagitis (principal); G47.33 Obstructive sleep apnea (adult) (pediatric); Z68.33 Body mass index [BMI] 33.0-33.9, adult; F32.A Depression, unspecified; Z12.39 Encounter for other screening for malignant neoplasm of breast; R07.9 Chest pain, unspecified; I10 Essential (primary) hypertension; E78.5 Hyperlipidemia, unspecified; Z72.0 Tobacco use; Z11.59 Encounter for screening for other viral diseases; Z11.4 Encounter for screening for human immunodeficiency virus [HIV]; R41.3 Other amnesia
CPT/HCPCS: 80053; 80061; 81001; 82306; 82607; 82728; 83540; 83550; 84156; 84439; 84443; 85025; 86803; 87086; 87389